=== PATIENT | female | born 1990 | race Two or more races ===

== ENCOUNTER 2022-10-15 12:51 | Inpatient (IN) | payer OTHER ==
[~2022-10-15] VITALS: Ht 160 cm; Wt 73.5 kg
[2022-10-29] MEDS ORDERED: PRENATAL TABLE1 EAC1 PO (05:50)
[2022-10-29] MEDS ORDERED: PEPCID AC20 MG PO (05:50)
== END 2022-10-31 13:24 | disposition home or self-care (01) | DRG 768 ==
LOC: LDR 10-26 13:45 → OB/GYN 10-29 04:47 → LDR 10-29 04:47 → OB/GYN 10-29 15:38
PROVIDERS: ADMIT Obstetrics & Gynecology; ATTEND Obstetrics & Gynecology
PROC: 10E0XZZ Delivery of Products of Conception, External Approach (ICD-10-PCS; principal; 2022-10-29)
PROC: 0DQR0ZZ Repair Anal Sphincter, Open Approach (ICD-10-PCS; 2022-10-29)
PROC: 4A1HXCZ Monitoring of Products of Conception, Cardiac Rate, External Approach (ICD-10-PCS; 2022-10-29)
DX: O70.21 Third degree perineal laceration during delivery, IIIa (principal); Z37.0 Single live birth; Z3A.40 40 weeks gestation of pregnancy; Z20.822 Contact with and (suspected) exposure to COVID-19

== ENCOUNTER 2022-10-21 16:07 | Outpatient (CLI) | payer OTHER | END 2022-10-21 17:05 | disposition home or self-care (01) | LOC: NST 16:07 | PROVIDERS: ATTEND Obstetrics & Gynecology | DX: Z34.83 Encounter for supervision of other normal pregnancy, third trimester (principal) ==

== ENCOUNTER 2022-10-24 13:55 | Outpatient (CLI) | payer OTHER | END 2022-10-24 15:25 | disposition home or self-care (01) | LOC: NST 13:55 | PROVIDERS: ATTEND Obstetrics & Gynecology Gynecology | DX: Z34.83 Encounter for supervision of other normal pregnancy, third trimester (principal) ==

== ENCOUNTER 2024-07-23 21:23 | Emergency (ER) | payer OTHER ==
[~2024-07-23] VITALS: Ht 160 cm; Wt 68.0 kg
[~2024-07-23 21:23] MED LIST: PEPCID AC20 MG PO; PRENATAL TABLE1 EAC1 PO
[2024-07-23 22:31] LABS: HEMATOCRIT 40.3 % (36.0-45.00); HEMOGLOBIN 14.1 g/dL (12.0-15.00); MEAN CELL VOLUME 87.9 fL (80.00-100.00); MEAN CORPUSCULAR HEMOGLOBIN 30.7 pg (27.00-32.0); MEAN CORPUSCULAR HGB CONC 34.9 g/dl (32.0-36.0); PLATELET COUNT 316 K/uL (150-450); RED BLOOD COUNT 4.58 M/uL (4.00-6.00); RED CELL DISTRIBUTION WIDTH 12.7 % (11.5-14.5)
[2024-07-23 23:06] LABS: CALCIUM 8.9 mg/dL (8.5-10.1); CREATININE SERUM 0.78 mg/dL (0.55-1.02); GFR 84.54; POTASSIUM 3.73 mEq/L (3.5-5.1)
[2024-07-23 23:16] LABS: URINE APPEARANCE Clear; URINE BILIRRUBIN Negative (NEGATIVE); URINE BLOOD Negative; URINE COLOR Orange; URINE GLUCOSE Negative (NEGATIVE); URINE KETONE Negative (NEGATIVE); URINE LEUKOCYTE Trace; URINE NITRATE Positive; URINE PROTEIN Negative (NEGATIVE)
[2024-07-23 23:20] LABS: URINE BACTERIA 18.3 uL (0.0-1933); URINE EPITHELIAL CELLS 3.4 uL (0.0-38.8); URINE RBC 3.8 uL (0.0-20.8)
[2024-07-23 23:38] LABS: URINE WBC 1.2 uL (0.0-23.2)
== END 2024-07-24 00:10 | disposition home or self-care (01) ==
LOC: ER 21:26
PROVIDERS: General Practice
DX: N39.0 Urinary tract infection, site not specified (principal); N28.89 Other specified disorders of kidney and ureter